=== PATIENT | female | born 1970 | race African-American/Black ===

== ENCOUNTER 2018-09-21 11:09 | Inpatient (IN) | payer MEDICAID ==
[~2018-09-21] VITALS: Ht 162.6 cm; Wt 58.1 kg
[2018-09-21] MEDS ORDERED: ONDANSETRON HCL 4MG/2ML INJ IV STA (11:38)
[2018-09-21] MEDS ORDERED: MORPHINE SULFATE 4 MG/ML CPJ (NOT FOR IM USE) IV STA (11:38)
[2018-09-21] MEDS ORDERED: FAMOTIDINE 20MG/2ML VIAL IV ONE (11:45)
[2018-09-21] MEDS ORDERED: SODIUM CHLORIDE 0.9% 1,000 ML IV ONE (12:04)
[2018-09-21 12:48] LABS: CHLORIDE 96 mEq/L (98-107); INR 1.1; PARTIAL THROMBOPLASTIN TIME 38.8 sec (23.4-31.0); PROTHROMBIN TIME 11.1 sec (9.6-11.0)
[2018-09-21 12:49] LABS: HCG SCREEN NEGATIVE
[2018-09-21 12:52] LABS: ETHANOL BLOOD < 10 mg/dL
[2018-09-21 13:05] LABS: HEMATOCRIT. 27.5 % (36.0-48.0); HEMOGLOBIN. 9.5 g/dL (12.0-16.0); MEAN CORPUSCULAR HEMOGLOBIN 33.4 pg (28.0-32.0); MEAN CORPUSCULAR VOLUME 96.6 fL (81.0-99.0); MEAN PLATELET VOLUME 8.9 fl (7.4-10.4); PLATELET 334 x1000/uL (130-400); RED BLOOD CELL COUNT 2.85 mill/uL (4.2-5.4); RED CELL DISTRIBUTION WIDTH 17.4 % (11.6-14.6)
[2018-09-21] MEDS ORDERED: SODIUM CHLORIDE 0.9% 1000ML BAG (SEPSIS BOLUS) IV ONE (13:30)
[2018-09-21] MEDS ORDERED: POTASSIUM CHLORIDE 20MEQ TABLET SR PO ONE (13:30)
[2018-09-21 13:31] LABS: NUCLEATED RED BLOOD CELLS 1 /100 WBC; PLATELET ESTIMATE NORMAL
[2018-09-21] MEDS ORDERED: LEVOFLOXACIN 500MG PREMIX 100 ML IV ONE (14:00)
[2018-09-21 16:43] LABS: CLARITY URINE CLOUDY (CLEAR); COLOR URINE YELLOW (YELLOW); KETONES URINE NEGATIVE (NEGATIVE); LEUKOCYTE ESTERASE URINE 1+ (NEGATIVE); NITRITE URINE NEGATIVE (NEGATIVE); OCCULT BLOOD URINE 1+ (NEGATIVE); PH URINE 6.5 (4.5-8.0); PROTEIN URINE 1+ (NEGATIVE); SPECIFIC GRAVITY URINE 1.016 (1.005-1.030)
[2018-09-21 17:04] LABS: *AMPHETAMINES SCREEN URINE NEGATIVE (NEGATIVE); *BARBITURATES SCREEN URINE NEGATIVE (NEGATIVE); *BENZODIAZEPINES SCREEN URINE NEGATIVE (NEGATIVE); *COCAINE SCREEN URINE NEGATIVE (NEGATIVE)
[2018-09-21 17:05] LABS: METHADONE URINE SCREEN NEGATIVE (NEGATIVE); PHENCYCLIDINE URINE SCREEN NEGATIVE (NEGATIVE)
[2018-09-21 17:12] LABS: CANNABINOID URINE SCREEN PRESUMTIVE POSITIVE (NEGATIVE); OPIATES URINE SCREEN PRESUMTIVE POSITIVE (NEGATIVE)
[2018-09-21] MEDS ORDERED: ONDANSETRON HCL 4MG/2ML INJ IV PRN (18:00)
[2018-09-21] MEDS ORDERED: CLONIDINE 0.1MG TABLET PO PRN (18:00)
[2018-09-21] MEDS ORDERED: MAGNESIUM/ALUMINUM HYDROXIDE/SIMETHICONE 30ML UDC PO PRN (18:00)
[2018-09-21] MEDS ORDERED: HYDROMORPHONE HCL/PF 2MG/ML CPJ IV PRN (18:00)
[2018-09-21] MEDS ORDERED: HYDROCODONE/ACETAMINOPHEN 10/325MG TABLET PO PRN (18:00)
[2018-09-21] MEDS ORDERED: DOCUSATE SODIUM 100MG CAPSULE PO PRN (18:00)
[2018-09-21] MEDS ORDERED: IPRATROPIUM/ALBUTEROL 0.5-3(2.5)MG/3ML NEB INH PRN (18:00)
[2018-09-21] MEDS ORDERED: GUAIFENESIN 200MG/10ML SUGAR FREE UDC PO PRN (18:00)
[2018-09-21] MEDS ORDERED: LORAZEPAM 2MG/ML CPJ IV PRN (18:00)
[2018-09-21] MEDS ORDERED: HYDRALAZINE 20MG/ML VIAL IV PRN (18:00)
[2018-09-21] MEDS ORDERED: CEFTRIAXONE 2 G PREMIX 50 ML IV SCH (18:30)
[2018-09-21] MEDS: SODIUM CHLORIDE 0.9% 1,000 ML IV SCH (18:37)
[2018-09-21 20:00] VITALS: BP 154/64
[2018-09-21 20:53] VITALS: BP 154/64
[2018-09-21] MEDS ORDERED: FLUCONAZOLE 100MG TABLET PO SCH (21:00)
[2018-09-21] MEDS: ENOXAPARIN 40MG/0.4ML SYR SUBCUT SCH (21:27)
[2018-09-21] MEDS: DIPHENHYDRAMINE 50MG/ML VIAL IV PRN (21:27)
[2018-09-21] MEDS: SODIUM CHLORIDE 0.9% INJ 3ML FLUSH IVF SCH (21:54)
[2018-09-21] MEDS ORDERED: AZITHROMYCIN 500 MG in DEXT 5% WATER 250 ML IV SCH (22:00)
[2018-09-21 23:28] LABS: CREATINE KINASE 89 IU/L (26-192)
[2018-09-21 23:30] LABS: CREATINE KINASE MB FRACTION < 1.0 ng/mL (0.5-3.6)
[2018-09-22] VITALS: BP 94/62
[2018-09-22] MEDS ORDERED: AZIT500T5 PO ×3 (00:57→01:15)
[2018-09-22] MEDS ORDERED: MYCOC15 TP (01:11)
[2018-09-22] MEDS ORDERED: BENA40TA9 PO (01:11)
[2018-09-22] MEDS ORDERED: ATAZ300C MT (01:11)
[2018-09-22] MEDS ORDERED: RITO100T MT (01:11)
[2018-09-22] MEDS ORDERED: FLUC200T51 PO (01:11)
[2018-09-22 04:00] VITALS: BP 111/75
[2018-09-22] MEDS: SODIUM CHLORIDE 0.9% 1,000 ML IV SCH ×2 (05:39→18:08)
[2018-09-22] MEDS: SODIUM CHLORIDE 0.9% INJ 3ML FLUSH IVF SCH ×3 (05:39→21:50)
[2018-09-22 06:00] LABS: HEMATOCRIT. 24.3 % (36.0-48.0); HEMOGLOBIN. 8.2 g/dL (12.0-16.0); MEAN CORPUSCULAR HEMOGLOBIN 32.8 pg (28.0-32.0); MEAN CORPUSCULAR VOLUME 97.4 fL (81.0-99.0); MEAN PLATELET VOLUME 8.4 fl (7.4-10.4); PLATELET 251 x1000/uL (130-400); RED BLOOD CELL COUNT 2.49 mill/uL (4.2-5.4)
[2018-09-22 06:24] LABS: CHLORIDE 98 mEq/L (98-107)
[2018-09-22 06:37] LABS: CREATINE KINASE 66 IU/L (26-192)
[2018-09-22 06:41] LABS: CREATINE KINASE MB FRACTION < 1.0 ng/mL (0.5-3.6)
[2018-09-22] MEDS: DIPHENHYDRAMINE 50MG/ML VIAL IV PRN (09:54)
[2018-09-22 16:00] VITALS: BP 100/60
[2018-09-22] MEDS ORDERED: FLUCONAZOLE 100MG TABLET PO SCH (16:00)
[2018-09-22 16:05] LABS: PLATELET ESTIMATE NORMAL
[2018-09-22] MEDS ORDERED: CEFTRIAXONE 2 G in DEXTROSE 5% WATER 50 ML IV SCH (18:00)
[2018-09-22] MEDS: ACETAMINOPHEN 325MG TABLET PO PRN (18:16)
[2018-09-22 20:00] VITALS: BP 102/70
[2018-09-22] MEDS: ENOXAPARIN 40MG/0.4ML SYR SUBCUT SCH (21:50)
[2018-09-22] MEDS ORDERED: AZITHROMYCIN 500MG in DEXTROSE 5% WATER 250ML IV SCH (22:00)
[2018-09-23] VITALS: BP 119/75
[2018-09-23 04:00] VITALS: BP 115/74
[2018-09-23] MEDS: SODIUM CHLORIDE 0.9% 1,000 ML IV SCH (04:42)
[2018-09-23] MEDS: ACETAMINOPHEN 325MG TABLET PO PRN (04:46)
[2018-09-23] MEDS: SODIUM CHLORIDE 0.9% INJ 3ML FLUSH IVF SCH (06:51)
[2018-09-23 08:00] VITALS: BP 122/74
[2018-09-23 08:14] VITALS: BP 122/74
== END 2018-09-23 09:55 | disposition home or self-care (01) | DRG 893 ==
LOC: ER 11:09 → 8WST 13:58 → EDBEDREQ 14:06 → ENRESERV 17:26
PROVIDERS: ADMIT Internal Medicine; ATTEND Internal Medicine
DX: B20 Human immunodeficiency virus [HIV] disease (principal); J18.1 Lobar pneumonia, unspecified organism; E46 Unspecified protein-calorie malnutrition; N39.0 Urinary tract infection, site not specified; D64.9 Anemia, unspecified; K52.9 Noninfective gastroenteritis and colitis, unspecified; F12.90 Cannabis use, unspecified, uncomplicated; Z68.22 Body mass index [BMI] 22.0-22.9, adult
CPT/HCPCS: 36415; 71045; 74176; 76770; 80305; 80320; 82550; 82553; 83605; 83615; 83735; 83880; 84145; 84484; 84703; 87804; 93005; 96365; 96375; 99291; J0456; J0696; J1200; J1650; J1956; J2060; J2270; J2405; J3490; J7030; J7040; J7060; G0480

== ENCOUNTER 2019-01-11 12:36 | Inpatient (IN) | payer MEDICAID ==
[~2019-01-11] VITALS: Ht 160 cm; Wt 578.8 kg
[~2019-01-11 12:36] MED LIST: ATAZ300C MT; AZIT500T5 PO; BENA40TA9 PO; FLUC200T51 PO; MYCOC15 TP; RITO100T MT
[2019-01-11] MEDS ORDERED: SODIUM CHLORIDE 0.9% 1,000 ML IV ONE (15:39)
[2019-01-11] MEDS ORDERED: MORPHINE SULFATE 4 MG/ML CPJ (NOT FOR IM USE) IV STA (15:39)
[2019-01-11 16:00] LABS: CLARITY URINE CLEAR (CLEAR); COLOR URINE YELLOW (YELLOW); KETONES URINE TRACE (NEGATIVE); LEUKOCYTE ESTERASE URINE TRACE (NEGATIVE); NITRITE URINE NEGATIVE (NEGATIVE); OCCULT BLOOD URINE 3+ (NEGATIVE); PH URINE 6.5 (4.5-8.0); PROTEIN URINE TRACE (NEGATIVE); SPECIFIC GRAVITY URINE 1.023 (1.005-1.030); UROBILINOGEN URINE 0.2 E.U./dL (0.2-1.0)
[2019-01-11 16:26] LABS: BASOPHILS % 0.3 % (0.0-2.0); EOSINOPHILS % 0.2 % (0.0-5.0); HEMATOCRIT. 27.5 % (36.0-48.0); HEMOGLOBIN. 9.2 g/dL (12.0-16.0); LYMPHOCYTES % 21.3 % (20.0-50.0); MEAN CORPUSCULAR HEMOGLOBIN 33.6 pg (28.0-32.0); MEAN PLATELET VOLUME 7.5 fl (7.4-10.4); MONOCYTES % 8.6 % (2.0-8.0); NEUTROPHILS % 69.6 % (40.0-76.0); PLATELET 395 x1000/uL (130-400); RED BLOOD CELL COUNT 2.74 mill/uL (4.2-5.4)
[2019-01-11 16:32] LABS: CHLORIDE 103 mEq/L (98-107)
[2019-01-11 16:40] LABS: PROTHROMBIN TIME 10.4 sec (9.6-11.0)
[2019-01-11] MEDS ORDERED: POTASSIUM CHLORIDE 20MEQ TABLET SR PO ONE (17:45)
[2019-01-11] MEDS ORDERED: MORPHINE SULFATE 4 MG/ML CPJ (NOT FOR IM USE) IV ONE (18:15)
[2019-01-11] MEDS ORDERED: KETOROLAC 15MG/ML VIAL IV ONE (21:15)
[2019-01-12] VITALS: BP 125/75
[2019-01-12] MEDS ORDERED: LORA10TA7 PO (00:27)
[2019-01-12] MEDS ORDERED: SULF-288 PO (00:27)
[2019-01-12] MEDS ORDERED: FERR325T6 PO (00:27)
[2019-01-12] MEDS ORDERED: VALA100044 PO (00:27)
[2019-01-12] MEDS ORDERED: TRIZ MT (00:27)
[2019-01-12] MEDS ORDERED: ONDANSETRON HCL 4MG/2ML INJ IV PRN (02:00)
[2019-01-12] MEDS: MORPHINE SULFATE 2 MG/ML CPJ (NOT FOR IM USE) IV PRN ×5 (02:07→21:53)
[2019-01-12] MEDS: ACETAMINOPHEN 325MG TABLET PO PRN ×4 (02:35→21:42)
[2019-01-12 04:00] VITALS: BP 111/63
[2019-01-12 06:16] LABS: CHLORIDE 103 mEq/L (98-107)
[2019-01-12 06:20] LABS: HEMATOCRIT. 26.5 % (36.0-48.0); HEMOGLOBIN. 8.9 g/dL (12.0-16.0); MEAN CORPUSCULAR HEMOGLOBIN 33.7 pg (28.0-32.0); MEAN CORPUSCULAR VOLUME 99.9 fL (81.0-99.0); MEAN PLATELET VOLUME 7.8 fl (7.4-10.4); PLATELET 327 x1000/uL (130-400); RED BLOOD CELL COUNT 2.65 mill/uL (4.2-5.4); RED CELL DISTRIBUTION WIDTH 19.6 % (11.6-14.6)
[2019-01-12] MEDS ORDERED: POTASSIUM CHLORIDE 20MEQ TABLET SR PO NR (07:45)
[2019-01-12 08:00] VITALS: BP 116/75
[2019-01-12] MEDS ORDERED: NYSTATIN TP SCH (09:00)
[2019-01-12] MEDS ORDERED: BENAZEPRIL 10MG TABLET PO SCH (09:00)
[2019-01-12] MEDS ORDERED: ABACAVIR/LAMIVUDINE/ZIDOVUDINE 300/150/300MG TABLET PO SCH (09:00)
[2019-01-12] MEDS: FLUCONAZOLE 100MG TABLET PO SCH (09:06)
[2019-01-12] MEDS: ATAZANAVIR SULFATE 150MG CAPSULE PO SCH (09:08)
[2019-01-12] MEDS: ZIDOVUDINE 300MG TABLET PO SCH ×2 (09:08→16:32)
[2019-01-12] MEDS: LAMIVUDINE 150MG TABLET PO SCH ×2 (09:08→16:32)
[2019-01-12] MEDS: ABACAVIR SULFATE 300MG TABLET PO SCH ×2 (09:08→16:32)
[2019-01-12] MEDS: RITONAVIR 100 MG TABLET PO SCH (09:08)
[2019-01-12 12:00] VITALS: BP 93/55
[2019-01-12 14:49] LABS: TOTAL IRON BINDING CAPACITY 285 ug/dL (250-450)
[2019-01-12 15:34] LABS: METHADONE URINE SCREEN NEGATIVE (NEGATIVE); OPIATES URINE SCREEN NEGATIVE (NEGATIVE)
[2019-01-12 15:35] LABS: *AMPHETAMINES SCREEN URINE NEGATIVE (NEGATIVE); *BARBITURATES SCREEN URINE NEGATIVE (NEGATIVE); *BENZODIAZEPINES SCREEN URINE NEGATIVE (NEGATIVE); PHENCYCLIDINE URINE SCREEN NEGATIVE (NEGATIVE)
[2019-01-12 15:40] LABS: *COCAINE SCREEN URINE PRESUMTIVE POSITIVE (NEGATIVE); CANNABINOID URINE SCREEN PRESUMTIVE POSITIVE (NEGATIVE)
[2019-01-12 16:00] VITALS: BP 102/62
[2019-01-12 16:13] LABS: PLATELET ESTIMATE NORMAL
[2019-01-12] MEDS: SIMETHICONE 80MG TABLET CHEW PO PRN (17:53)
[2019-01-12 20:00] VITALS: BP 100/49
[2019-01-12] MEDS: FERROUS SULFATE 325MG TABLET PO SCH (21:41)
[2019-01-12] MEDS: VALACYCLOVIR HCL 500MG TABLET PO SCH (21:41)
[2019-01-12] MEDS: LORATADINE 10MG TABLET PO SCH (21:42)
[2019-01-12] MEDS: SULFAMETHOXAZOLE/TRIMETHOPRIM 800/160MG TABLET PO SCH (21:52)
[2019-01-13] MEDS: SIMETHICONE 80MG TABLET CHEW PO PRN ×2 (05:26→18:45)
[2019-01-13] MEDS: ACETAMINOPHEN 325MG TABLET PO PRN ×3 (05:42→17:25)
[2019-01-13 06:31] LABS: HEMATOCRIT. 25.3 % (36.0-48.0); HEMOGLOBIN. 8.7 g/dL (12.0-16.0); MEAN CORPUSCULAR HEMOGLOBIN 34.3 pg (28.0-32.0); MEAN CORPUSCULAR VOLUME 99.9 fL (81.0-99.0); MEAN PLATELET VOLUME 8.1 fl (7.4-10.4); PLATELET 303 x1000/uL (130-400); RED BLOOD CELL COUNT 2.54 mill/uL (4.2-5.4)
[2019-01-13 07:08] LABS: CHLORIDE 103 mEq/L (98-107)
[2019-01-13 08:00] VITALS: BP 89/54
[2019-01-13] MEDS: ABACAVIR SULFATE 300MG TABLET PO SCH ×2 (09:06→17:20)
[2019-01-13] MEDS: LAMIVUDINE 150MG TABLET PO SCH ×2 (09:06→17:20)
[2019-01-13] MEDS: ZIDOVUDINE 300MG TABLET PO SCH ×2 (09:07→17:20)
[2019-01-13] MEDS: ATAZANAVIR SULFATE 150MG CAPSULE PO SCH (09:07)
[2019-01-13] MEDS: RITONAVIR 100 MG TABLET PO SCH (09:07)
[2019-01-13] MEDS: FLUCONAZOLE 100MG TABLET PO SCH (09:11)
[2019-01-13 10:05] LABS: NUCLEATED RED BLOOD CELLS 1 /100 WBC
[2019-01-13 10:06] LABS: PLATELET ESTIMATE NORMAL
[2019-01-13 11:57] VITALS: BP 91/62
[2019-01-13] MEDS: MORPHINE SULFATE 2 MG/ML CPJ (NOT FOR IM USE) IV PRN ×2 (12:22→21:10)
[2019-01-13 15:54] VITALS: BP 101/62
[2019-01-13 20:00] VITALS: BP 105/73
[2019-01-13] MEDS: VALACYCLOVIR HCL 500MG TABLET PO SCH (21:16)
[2019-01-13] MEDS: SULFAMETHOXAZOLE/TRIMETHOPRIM 800/160MG TABLET PO SCH (21:16)
[2019-01-13] MEDS: LORATADINE 10MG TABLET PO SCH (21:16)
[2019-01-13] MEDS: FERROUS SULFATE 325MG TABLET PO SCH (21:16)
[2019-01-14] VITALS: BP 102/65
[2019-01-14] MEDS: MORPHINE SULFATE 2 MG/ML CPJ (NOT FOR IM USE) IV PRN ×2 (01:32→05:43)
[2019-01-14] MEDS: SIMETHICONE 80MG TABLET CHEW PO PRN (01:39)
[2019-01-14 04:00] VITALS: BP 110/70
[2019-01-14 08:00] VITALS: BP 126/80
[2019-01-14 09:11] LABS: ABSOLUTE LYMPHOCYTES 1.6 x10E3/uL (0.7-3.1); ABSOLUTE MONOCYTES 0.5 x10E3/uL (0.1-0.9); ABSOLUTE NEUTROPHILS 2.2 x10E3/uL (1.4-7.0); BASOPHILS 0 % (Not Estab.); HEMATOCRIT 33.3 % (34.0-46.6); HEMATOLOGY COMMENT Note: (.); HEMOGLOBIN 10.4 g/dL (11.1-15.9); LYMPHOCYTES 37 % (Not Estab.); MEAN CORPUSCULAR HEMOGLOBIN 31.4 pg (26.6-33.0); MEAN CORPUSCULAR HGB CONC. 31.2 g/dL (31.5-35.7); MEAN CORPUSCULAR VOLUME 101 fL (79-97); MONOCYTES 12 % (Not Estab.); NEUTROPHILS 48 % (Not Estab.); PLATELETS 387 x10E3/uL (150-450); RBC 3.31 x10E6/uL (3.77-5.28); RED CELL DISTRIBUTION WIDTH 18.3 % (12.3-15.4); WBC 4.4 x10E3/uL (3.4-10.8)
[2019-01-14] MEDS: ABACAVIR SULFATE 300MG TABLET PO SCH ×2 (09:14→16:25)
[2019-01-14] MEDS: ZIDOVUDINE 300MG TABLET PO SCH ×2 (09:15→16:25)
[2019-01-14] MEDS: LAMIVUDINE 150MG TABLET PO SCH ×2 (09:15→16:25)
[2019-01-14] MEDS: RITONAVIR 100 MG TABLET PO SCH (09:15)
[2019-01-14] MEDS: ATAZANAVIR SULFATE 150MG CAPSULE PO SCH (09:15)
[2019-01-14] MEDS: FLUCONAZOLE 100MG TABLET PO SCH (09:15)
[2019-01-14] MEDS: ACETAMINOPHEN 325MG TABLET PO PRN (09:15)
[2019-01-14] MEDS ORDERED: HYDROMORPHONE HCL/PF 2MG/ML CPJ IV PRN (09:45)
[2019-01-14] MEDS: SORBITOL 70% SOLN 30ML PO NR ×2 (10:08→10:56)
[2019-01-14 11:21] VITALS: BP 111/79
[2019-01-14 13:06] LABS: % CD 4 POS. LYMPHOCYTES 3.6 % (30.8-58.5); % CD 8 POS. LYMPH 66.8 % (12.0-35.5); ABSOLUTE CD 3 1184 /uL (622-2402); ABSOLUTE CD 4 HELPER 58 /uL (359-1519); ABSOLUTE CD 8 SUPPRESSOR 1069 /uL (109-897); CD4/CD8 RATIO 0.05 (0.92-3.72)
[2019-01-14 15:22] VITALS: BP 100/60
[2019-01-14 16:04] LABS: HEMOGLOBIN. 10.6 g/dL (12.0-16.0); MEAN CORPUSCULAR HEMOGLOBIN 33.3 pg (28.0-32.0); MEAN CORPUSCULAR VOLUME 101.1 fL (81.0-99.0); MEAN PLATELET VOLUME 7.9 fl (7.4-10.4); PLATELET 361 x1000/uL (130-400); RED BLOOD CELL COUNT 3.17 mill/uL (4.2-5.4); RED CELL DISTRIBUTION WIDTH 19.6 % (11.6-14.6)
[2019-01-14 16:11] LABS: CHLORIDE 98 mEq/L (98-107)
[2019-01-14 16:40] VITALS: BP 99/60
[2019-01-14 16:43] LABS: PLATELET ESTIMATE NORMAL
[2019-01-17] MEDS ORDERED: AZITHROMYCIN 600 MG TABLET PO SCH (09:00)
[2019-01-20 04:09] LABS: OVA & PARASITE EXAM Final report (.)
== END 2019-01-14 17:03 | disposition home or self-care (01) | DRG 892 ==
LOC: ER 12:36 → 6EST 20:13 → EDBEDREQ 20:16 → EDBEDREQTM 20:16 → ENRESERV 22:36
PROVIDERS: ADMIT Internal Medicine; ATTEND Internal Medicine
DX: A41.9 Sepsis, unspecified organism (principal); B20 Human immunodeficiency virus [HIV] disease; E43 Unspecified severe protein-calorie malnutrition; D61.818 Other pancytopenia; B37.81 Candidal esophagitis; Z68.45 Body mass index [BMI] 70 or greater, adult; M47.897 Other spondylosis, lumbosacral region; D53.9 Nutritional anemia, unspecified; F12.90 Cannabis use, unspecified, uncomplicated; F14.90 Cocaine use, unspecified, uncomplicated; F17.210 Nicotine dependence, cigarettes, uncomplicated; N39.0 Urinary tract infection, site not specified; K52.9 Noninfective gastroenteritis and colitis, unspecified; E87.6 Hypokalemia; Z71.51 Drug abuse counseling and surveillance of drug abuser
CPT/HCPCS: 36415; 74018; 74176; 80048; 80305; 82270; 82728; 83540; 83550; 83605; 86359; 86360; 87015; 87045; 87177; 87209; 87328; 87427; 87449; 87493; 89055; 96374; 99285; J1170; J1885; J2270; J2405; J7030

== ENCOUNTER 2019-01-22 10:55 | Emergency (ER) | payer MEDICAID ==
[~2019-01-22] VITALS: Ht 162.6 cm; Wt 110.0 kg
[~2019-01-22 10:55] MED LIST changes: +FERR325T6 PO; +LORA10TA7 PO; +SULF-288 PO; +TRIZ MT; +VALA100044 PO
[2019-01-22] MEDS ORDERED: ONDANSETRON HCL 4MG/2ML INJ IV STA (11:32)
[2019-01-22] MEDS ORDERED: MAGNESIUM/ALUMINUM HYDROXIDE/SIMETHICONE 30ML UDC PO STA (11:32)
[2019-01-22] MEDS ORDERED: FAMOTIDINE 20MG/2ML VIAL IV STA (11:32)
[2019-01-22] MEDS ORDERED: SODIUM CHLORIDE 0.9% 1,000 ML IV ONE (11:32)
[2019-01-22] MEDS ORDERED: VISCOUS LIDOCAINE 2% 15 ML UDC PO STA (11:32)
[2019-01-22] MEDS ORDERED: MINERAL OIL ENEMA 133ML PR ONE (12:15)
[2019-01-22] MEDS ORDERED: DICYCLOMINE HCL 10MG/ML 2ML AMP IM ONE (12:15)
[2019-01-22 14:23] LABS: HEMATOCRIT. 27.4 % (36.0-48.0); HEMOGLOBIN. 9.2 g/dL (12.0-16.0); MEAN CORPUSCULAR VOLUME 101.4 fL (81.0-99.0); MEAN PLATELET VOLUME 7.2 fl (7.4-10.4); PLATELET 350 x1000/uL (130-400); RED BLOOD CELL COUNT 2.71 mill/uL (4.2-5.4); RED CELL DISTRIBUTION WIDTH 19.4 % (11.6-14.6)
[2019-01-22 14:29] LABS: CHLORIDE 105 mEq/L (98-107)
[2019-01-22 14:35] LABS: PROTHROMBIN TIME 10.5 sec (9.6-11.0)
[2019-01-22 15:22] LABS: CLARITY URINE CLEAR (CLEAR); COLOR URINE YELLOW (YELLOW); KETONES URINE TRACE (NEGATIVE); LEUKOCYTE ESTERASE URINE 2+ (NEGATIVE); NITRITE URINE NEGATIVE (NEGATIVE); OCCULT BLOOD URINE NEGATIVE (NEGATIVE); PROTEIN URINE TRACE (NEGATIVE); SPECIFIC GRAVITY URINE 1.019 (1.005-1.030)
[2019-01-22 16:42] LABS: PLATELET ESTIMATE NORMAL
[2019-01-22 18:00] VITALS: BP 113/165
== END 2019-01-22 18:00 | disposition home or self-care (01) ==
LOC: ER 10:55
DX: N39.0 Urinary tract infection, site not specified (principal); G89.29 Other chronic pain; D72.819 Decreased white blood cell count, unspecified; D64.9 Anemia, unspecified; K59.00 Constipation, unspecified; I10 Essential (primary) hypertension; Z79.899 Other long term (current) drug therapy
CPT/HCPCS: 36415; 74018; 80053; 81003; 83690; 85025; 85610; 96372; 96374; 96375; 99284; J0500; J2405; J3490; J7030

== ENCOUNTER 2019-05-28 22:53 | Inpatient (IN) | payer MEDICAID ==
[~2019-05-28] VITALS: Ht 162.6 cm; Wt 51.3 kg
[2019-05-28] MEDS ORDERED: ONDANSETRON HCL 4MG/2ML INJ IV STA (23:51)
[2019-05-28] MEDS ORDERED: SODIUM CHLORIDE 0.9% 1,000 ML IV ONE (23:51)
[2019-05-28] MEDS ORDERED: MORPHINE SULFATE 4 MG/ML CPJ (NOT FOR IM USE) IV STA (23:51)
[2019-05-29 00:26] LABS: BASOPHILS % 0.3 % (0.0-2.0); CHLORIDE 104 mEq/L (98-107); EOSINOPHILS % 0.9 % (0.0-5.0); HEMATOCRIT. 34.1 % (36.0-48.0); HEMOGLOBIN. 11.1 g/dL (12.0-16.0); INR 0.9; LYMPHOCYTES % 17.9 % (20.0-50.0); MEAN CORPUSCULAR VOLUME 94.9 fL (81.0-99.0); MEAN PLATELET VOLUME 8.2 fl (7.4-10.4); MONOCYTES % 6.3 % (2.0-8.0); NEUTROPHILS % 74.6 % (40.0-76.0); PLATELET 305 x1000/uL (130-400); PROTHROMBIN TIME 9.4 sec (9.6-11.0); RED BLOOD CELL COUNT 3.59 mill/uL (4.2-5.4)
[2019-05-29 01:46] LABS: CLARITY URINE CLEAR (CLEAR); COLOR URINE DARK YELLOW (YELLOW); KETONES URINE TRACE (NEGATIVE); LEUKOCYTE ESTERASE URINE TRACE (NEGATIVE); NITRITE URINE NEGATIVE (NEGATIVE); OCCULT BLOOD URINE NEGATIVE (NEGATIVE); PH URINE 8.5 (4.5-8.0); PROTEIN URINE 1+ (NEGATIVE)
[2019-05-29 01:54] LABS: *BENZODIAZEPINES SCREEN URINE NEGATIVE (NEGATIVE); METHADONE URINE SCREEN NEGATIVE (NEGATIVE)
[2019-05-29 01:55] LABS: *AMPHETAMINES SCREEN URINE NEGATIVE (NEGATIVE); *BARBITURATES SCREEN URINE NEGATIVE (NEGATIVE); PHENCYCLIDINE URINE SCREEN NEGATIVE (NEGATIVE)
[2019-05-29 01:58] LABS: *COCAINE SCREEN URINE PRESUMTIVE POSITIVE (NEGATIVE); CANNABINOID URINE SCREEN PRESUMTIVE POSITIVE (NEGATIVE); OPIATES URINE SCREEN PRESUMTIVE POSITIVE (NEGATIVE)
[2019-05-29] MEDS ORDERED: IOHEXOL-300 100 ML BOTTLE ONE (03:56)
[2019-05-29 04:30] VITALS: BP 109/73
[2019-05-29] MEDS ORDERED: CLONIDINE 0.1MG TABLET PO PRN (06:15)
[2019-05-29] MEDS ORDERED: ONDANSETRON HCL 4MG/2ML INJ IV PRN (06:15)
[2019-05-29] MEDS: DEXT 5%/0.45% NACL 1000ML 1,000 ML IV SCH ×2 (07:45→20:22)
[2019-05-29] MEDS: LORATADINE 10MG TABLET PO SCH (10:41)
[2019-05-29] MEDS: HYDROMORPHONE HCL/PF 2MG/ML CPJ IV PRN ×4 (11:11→23:20)
[2019-05-29 12:00] VITALS: BP 124/79
[2019-05-29] MEDS: ATAZANAVIR SULFATE 150MG CAPSULE PO SCH (14:00)
[2019-05-29] MEDS: LAMIVUDINE 150MG TABLET PO SCH ×2 (14:00→22:00)
[2019-05-29] MEDS: ZIDOVUDINE 300MG TABLET PO SCH ×2 (14:01→21:28)
[2019-05-29] MEDS: ABACAVIR SULFATE 300MG TABLET PO SCH ×2 (14:01→21:26)
[2019-05-29] MEDS: RITONAVIR 100 MG TABLET PO SCH (14:01)
[2019-05-29] MEDS: SULFAMETHOXAZOLE/TRIMETHOPRIM 800/160MG TABLET PO SCH (16:12)
[2019-05-29] MEDS ORDERED: ABACAVIR/LAMIVUDINE/ZIDOVUDINE 300/150/300MG TABLET PO SCH (17:00)
[2019-05-29] MEDS: POLYETHYLENE GLYCOL 3350 (17GM) 1 DOSE PACK PO SCH (18:26)
[2019-05-29 20:00] VITALS: BP 101/68
[2019-05-29] MEDS ORDERED: DIPHENHYDRAMINE 50MG CAPSULE PO PRN (20:15)
[2019-05-29] MEDS: VALACYCLOVIR HCL 500MG TABLET PO SCH (20:19)
[2019-05-30] VITALS: BP 101/62
[2019-05-30 04:00] VITALS: BP 120/70
[2019-05-30] MEDS: HYDROMORPHONE HCL/PF 2MG/ML CPJ IV PRN ×6 (04:51→21:54)
[2019-05-30 06:21] LABS: BASOPHILS % 0.3 % (0.0-2.0); EOSINOPHILS % 0.6 % (0.0-5.0); HEMATOCRIT. 30.1 % (36.0-48.0); HEMOGLOBIN. 9.9 g/dL (12.0-16.0); LYMPHOCYTES % 19.9 % (20.0-50.0); MEAN CORPUSCULAR HEMOGLOBIN 31.4 pg (28.0-32.0); MEAN CORPUSCULAR VOLUME 95.5 fL (81.0-99.0); MEAN PLATELET VOLUME 8.2 fl (7.4-10.4); MONOCYTES % 10.7 % (2.0-8.0); NEUTROPHILS % 68.5 % (40.0-76.0); PLATELET 277 x1000/uL (130-400); RED BLOOD CELL COUNT 3.16 mill/uL (4.2-5.4); RED CELL DISTRIBUTION WIDTH 17.4 % (11.6-14.6)
[2019-05-30 06:35] LABS: CHLORIDE 103 mEq/L (98-107)
[2019-05-30 08:00] VITALS: BP 132/69
[2019-05-30] MEDS: POLYETHYLENE GLYCOL 3350 (17GM) 1 DOSE PACK PO SCH (08:48)
[2019-05-30] MEDS: RITONAVIR 100 MG TABLET PO SCH (08:49)
[2019-05-30] MEDS: ABACAVIR SULFATE 300MG TABLET PO SCH ×2 (08:49→20:47)
[2019-05-30] MEDS: VALACYCLOVIR HCL 500MG TABLET PO SCH ×2 (08:49→20:47)
[2019-05-30] MEDS: LORATADINE 10MG TABLET PO SCH (08:49)
[2019-05-30] MEDS: ZIDOVUDINE 300MG TABLET PO SCH ×2 (08:49→20:48)
[2019-05-30] MEDS: ATAZANAVIR SULFATE 150MG CAPSULE PO SCH (08:50)
[2019-05-30] MEDS: LAMIVUDINE 150MG TABLET PO SCH ×2 (08:50→21:00)
[2019-05-30] MEDS ORDERED: AZITHROMYCIN 600 MG TABLET PO SCH (09:00)
[2019-05-30] MEDS: ACETAMINOPHEN 325MG TABLET PO PRN ×2 (10:38→20:45)
[2019-05-30] MEDS: FLUCONAZOLE 100MG TABLET PO SCH (14:59)
[2019-05-30] MEDS: SULFAMETHOXAZOLE/TRIMETHOPRIM 800/160MG TABLET PO SCH (17:03)
[2019-05-30] MEDS: NYSTATIN 100,000 UNITS/ML 5ML UDC SSW SCH (17:03)
[2019-05-30 20:00] VITALS: BP 116/79
[2019-05-30] MEDS: DEXT 5%/0.45% NACL 1000ML 1,000 ML IV SCH (21:53)
[2019-05-31] VITALS: BP 127/76
[2019-05-31 04:00] VITALS: BP 125/78
[2019-05-31] MEDS: NYSTATIN 100,000 UNITS/ML 5ML UDC SSW SCH ×4 (06:00→13:12)
[2019-05-31] MEDS: HYDROMORPHONE HCL/PF 2MG/ML CPJ IV PRN ×3 (07:02→13:08)
[2019-05-31 08:00] VITALS: BP 118/85
[2019-05-31] MEDS: LAMIVUDINE 150MG TABLET PO SCH (09:00)
[2019-05-31] MEDS: ATAZANAVIR SULFATE 150MG CAPSULE PO SCH (09:00)
[2019-05-31] MEDS: RITONAVIR 100 MG TABLET PO SCH (09:59)
[2019-05-31] MEDS: ABACAVIR SULFATE 300MG TABLET PO SCH (09:59)
[2019-05-31] MEDS: VALACYCLOVIR HCL 500MG TABLET PO SCH (09:59)
[2019-05-31] MEDS: LORATADINE 10MG TABLET PO SCH (09:59)
[2019-05-31] MEDS: FLUCONAZOLE 100MG TABLET PO SCH (09:59)
[2019-05-31] MEDS: ZIDOVUDINE 300MG TABLET PO SCH (09:59)
[2019-05-31] MEDS: POLYETHYLENE GLYCOL 3350 (17GM) 1 DOSE PACK PO SCH (10:00)
[2019-05-31 12:00] VITALS: BP 107/75
[2019-05-31] MEDS: DEXT 5%/0.45% NACL 1000ML 1,000 ML IV SCH (13:30)
[2019-05-31 14:32] VITALS: BP 107/75
== END 2019-05-31 14:46 | disposition home or self-care (01) | DRG 890 ==
LOC: ER 22:53 → 6EST 05-29 01:58 → EDBEDREQ 05-29 02:13 → EDBEDREQSVC 05-29 02:13 → EDBEDREQTM 05-29 02:13 → ENRESERV 05-29 02:44
PROVIDERS: ADMIT Hospitalist; ATTEND Hospitalist
DX: B20 Human immunodeficiency virus [HIV] disease (principal); B25.9 Cytomegaloviral disease, unspecified; C85.93 Non-Hodgkin lymphoma, unspecified, intra-abdominal lymph nodes; E43 Unspecified severe protein-calorie malnutrition; D64.9 Anemia, unspecified; B37.9 Candidiasis, unspecified; E88.09 Other disorders of plasma-protein metabolism, not elsewhere classified; D72.819 Decreased white blood cell count, unspecified; K42.9 Umbilical hernia without obstruction or gangrene; E11.9 Type 2 diabetes mellitus without complications; F17.210 Nicotine dependence, cigarettes, uncomplicated; I10 Essential (primary) hypertension; M47.9 Spondylosis, unspecified; F19.10 Other psychoactive substance abuse, uncomplicated; Z79.899 Other long term (current) drug therapy; Z68.1 Body mass index [BMI] 19.9 or less, adult
CPT/HCPCS: 36415; 74177; 80053; 80305; 81003; 82962; 83615; 84484; 85025; 93970; 96361; 96374; 96375; 99285; J1170; J2270; J2405; J7030; Q0163; Q9967

== ENCOUNTER 2019-06-09 14:44 | Emergency (ER) | payer MEDICAID ==
[~2019-06-09] VITALS: Ht 160 cm; Wt 50.0 kg
[2019-06-09 18:43] VITALS: BP 120/99
== END 2019-06-09 19:30 | disposition left against medical advice (07) ==
LOC: ER 14:44
DX: Z53.21 Procedure and treatment not carried out due to patient leaving prior to being seen by health care provider (principal)

== ENCOUNTER 2019-06-10 16:22 | Inpatient (IN) | payer MEDICAID ==
[~2019-06-10] VITALS: Ht 162.6 cm; Wt 47.6 kg
[~2019-06-10 16:22] MED LIST changes: -AZIT500T5 PO; +AZIT500T8 PO
[2019-06-10] MEDS ORDERED: MORPHINE SULFATE 4 MG/ML CPJ (NOT FOR IM USE) IV STA (21:25)
[2019-06-10] MEDS ORDERED: SODIUM CHLORIDE 0.9% 1,000 ML IV ONE (21:25)
[2019-06-10] MEDS ORDERED: ONDANSETRON HCL 4MG/2ML INJ IV STA (21:25)
[2019-06-10 22:36] LABS: HEMATOCRIT. 40.7 % (36.0-48.0); HEMOGLOBIN. 13.6 g/dL (12.0-16.0); MEAN CORPUSCULAR HEMOGLOBIN 30.7 pg (28.0-32.0); MEAN CORPUSCULAR VOLUME 91.7 fL (81.0-99.0); PLATELET 354 x1000/uL (130-400); RED BLOOD CELL COUNT 4.44 mill/uL (4.2-5.4); RED CELL DISTRIBUTION WIDTH 17.5 % (11.6-14.6)
[2019-06-10 22:43] LABS: CHLORIDE 97 mEq/L (98-107); PARTIAL THROMBOPLASTIN TIME 29.3 sec (23.4-31.0); PROTHROMBIN TIME 10.2 sec (9.6-11.0)
[2019-06-10 22:46] LABS: HCG SCREEN NEGATIVE
[2019-06-10 22:48] LABS: ETHANOL BLOOD < 10 mg/dL
[2019-06-10 22:57] LABS: PLATELET ESTIMATE NORMAL
[2019-06-10 23:21] LABS: CLARITY URINE CLEAR (CLEAR); COLOR URINE YELLOW (YELLOW); KETONES URINE 1+ (NEGATIVE); LEUKOCYTE ESTERASE URINE 1+ (NEGATIVE); NITRITE URINE NEGATIVE (NEGATIVE); OCCULT BLOOD URINE NEGATIVE (NEGATIVE); PROTEIN URINE 1+ (NEGATIVE); SPECIFIC GRAVITY URINE 1.039 (1.005-1.030)
[2019-06-10 23:28] LABS: *AMPHETAMINES SCREEN URINE NEGATIVE (NEGATIVE); *BARBITURATES SCREEN URINE NEGATIVE (NEGATIVE); *BENZODIAZEPINES SCREEN URINE NEGATIVE (NEGATIVE); *COCAINE SCREEN URINE NEGATIVE (NEGATIVE)
[2019-06-10 23:29] LABS: METHADONE URINE SCREEN NEGATIVE (NEGATIVE); OPIATES URINE SCREEN NEGATIVE (NEGATIVE); PHENCYCLIDINE URINE SCREEN NEGATIVE (NEGATIVE)
[2019-06-10 23:38] LABS: CANNABINOID URINE SCREEN PRESUMTIVE POSITIVE (NEGATIVE)
[2019-06-11] MEDS ORDERED: PIPERACILLIN/TAZ 3.375G PREMIX 50 ML IV ONE (02:00)
[2019-06-11] MEDS ORDERED: METRONIDAZOLE 500 MG PREMIX 100 ML IV ONE (02:00)
[2019-06-11] MEDS ORDERED: ONDANSETRON HCL 4MG/2ML INJ IV ONE (02:15)
[2019-06-11] MEDS ORDERED: MORPHINE SULFATE 4 MG/ML CPJ (NOT FOR IM USE) IV ONE (02:15)
[2019-06-11] MEDS ORDERED: ONDANSETRON HCL 4MG/2ML INJ IV PRN (02:45)
[2019-06-11] MEDS ORDERED: MORPHINE SULFATE 4 MG/ML CPJ (NOT FOR IM USE) IV PRN (02:45)
[2019-06-11 04:10] VITALS: BP 132/89
[2019-06-11 08:00] VITALS: BP_SYST 140; BP_DIAS 97; BP_DIAS 98
[2019-06-11] MEDS: LACTATED RINGERS 1,000 ML IV SCH ×3 (11:15→22:17)
[2019-06-11] MEDS: BENAZEPRIL 10MG TABLET PO SCH (11:30)
[2019-06-11] MEDS: HYDROCODONE/ACETAMINOPHEN 10/325MG TABLET PO PRN ×2 (11:54→18:18)
[2019-06-11] MEDS: ONDANSETRON HCL 4MG/2ML INJ IV SCH ×3 (11:56→21:05)
[2019-06-11 12:00] VITALS: BP 123/89
[2019-06-11 12:16] VITALS: BP 109/89
[2019-06-11] MEDS ORDERED: ZOLPIDEM TARTRATE 5MG TABLET PO PRN ×2 (12:30→21:00)
[2019-06-11] MEDS: HYDROCODONE/ACETAMINOPHEN 5/325MG TABLET PO PRN ×2 (15:50→21:17)
[2019-06-11 16:00] VITALS: BP 131/99
[2019-06-11] MEDS: SULFAMETHOXAZOLE/TRIMETHOPRIM 800/160MG TABLET PO SCH (16:51)
[2019-06-11 20:00] VITALS: BP 126/101
[2019-06-11] MEDS ORDERED: SODIUM POLYSTYRENE SULFONATE 15 G/60 ML BOT PO NR (21:00)
[2019-06-11] MEDS: LORATADINE 10MG TABLET PO SCH (21:05)
[2019-06-12] VITALS: BP 131/88
[2019-06-12] MEDS: HYDROCODONE/ACETAMINOPHEN 10/325MG TABLET PO PRN ×2 (00:39→06:48)
[2019-06-12] MEDS: ZOLPIDEM TARTRATE 5MG TABLET PO PRN (00:40)
[2019-06-12] MEDS ORDERED: OMEPRAZOLE 20MG CAPSULE EXTENDED RELEASE PO SCH (01:00)
[2019-06-12] MEDS: HYDROCODONE/ACETAMINOPHEN 5/325MG TABLET PO PRN ×2 (03:20→10:32)
[2019-06-12 04:00] VITALS: BP 135/97
[2019-06-12] MEDS: ONDANSETRON HCL 4MG/2ML INJ IV SCH (05:15)
[2019-06-12 07:05] LABS: HEMATOCRIT. 33.4 % (36.0-48.0); HEMOGLOBIN. 10.9 g/dL (12.0-16.0); MEAN CORPUSCULAR HEMOGLOBIN 30.5 pg (28.0-32.0); MEAN CORPUSCULAR VOLUME 93.2 fL (81.0-99.0); MEAN PLATELET VOLUME 7.8 fl (7.4-10.4); PLATELET 290 x1000/uL (130-400); RED BLOOD CELL COUNT 3.58 mill/uL (4.2-5.4); RED CELL DISTRIBUTION WIDTH 16.9 % (11.6-14.6)
[2019-06-12 07:52] LABS: CHLORIDE 101 mEq/L (98-107)
[2019-06-12 08:00] VITALS: BP 136/95
[2019-06-12] MEDS ORDERED: AZITHROMYCIN 600 MG TABLET PO SCH (09:00)
[2019-06-12] MEDS: BENAZEPRIL 10MG TABLET PO SCH (09:10)
[2019-06-12] MEDS: SULFAMETHOXAZOLE/TRIMETHOPRIM 800/160MG TABLET PO SCH (09:10)
[2019-06-12] MEDS ORDERED: MORPHINE SULFATE 2 MG/ML CPJ (NOT FOR IM USE) IV PRN (11:15)
[2019-06-12] MEDS ORDERED: LABETALOL 5MG/ML SYR 20 MG/4 ML SYRINGE IV PRN (11:45)
[2019-06-12] MEDS ORDERED: NALOXONE HCL 0.4 MG/ML 1ML VIAL IV PRN (11:45)
[2019-06-12] MEDS: PANTOPRAZOLE SODIUM 40 MG/VIAL IV SCH (11:52)
[2019-06-12 12:00] VITALS: BP 117/81
[2019-06-12] MEDS ORDERED: ONDANSETRON HCL 4MG TABLET PO SCH (12:00)
[2019-06-12] MEDS: MORPHINE SULFATE 4 MG/ML CPJ (NOT FOR IM USE) IV PRN ×2 (13:26→20:16)
[2019-06-12] MEDS ORDERED: CLONIDINE 0.1MG TABLET PO PRN (13:30)
[2019-06-12 16:00] VITALS: BP 105/68
[2019-06-12] MEDS: ONDANSETRON HCL 4MG/2ML INJ IV PRN (16:22)
[2019-06-12 17:02] LABS: PLATELET ESTIMATE NORMAL
[2019-06-12 20:00] VITALS: BP 98/60
[2019-06-12] MEDS: LORATADINE 10MG TABLET PO SCH (20:16)
[2019-06-13] VITALS: BP 104/62
[2019-06-13] MEDS: MORPHINE SULFATE 4 MG/ML CPJ (NOT FOR IM USE) IV PRN ×6 (01:30→19:55)
[2019-06-13 04:00] VITALS: BP 97/57
[2019-06-13 06:57] LABS: HEMATOCRIT. 28.2 % (36.0-48.0); HEMOGLOBIN. 9.6 g/dL (12.0-16.0); MEAN CORPUSCULAR HEMOGLOBIN 31.1 pg (28.0-32.0); MEAN CORPUSCULAR VOLUME 91.4 fL (81.0-99.0); MEAN PLATELET VOLUME 7.9 fl (7.4-10.4); PLATELET 275 x1000/uL (130-400); RED BLOOD CELL COUNT 3.08 mill/uL (4.2-5.4); RED CELL DISTRIBUTION WIDTH 17.4 % (11.6-14.6)
[2019-06-13 07:29] LABS: CHLORIDE 100 mEq/L (98-107)
[2019-06-13] MEDS: SULFAMETHOXAZOLE/TRIMETHOPRIM 800/160MG TABLET PO SCH (09:13)
[2019-06-13] MEDS: PANTOPRAZOLE SODIUM 40 MG/VIAL IV SCH (09:13)
[2019-06-13] MEDS: BENAZEPRIL 10MG TABLET PO SCH (09:14)
[2019-06-13] MEDS: ONDANSETRON HCL 4MG/2ML INJ IV PRN ×2 (09:14→15:08)
[2019-06-13] MEDS: GUAIFENESIN 200MG/10ML SUGAR FREE UDC PO SCH ×4 (11:08→22:15)
[2019-06-13 12:00] VITALS: BP 115/69
[2019-06-13 14:05] LABS: PLATELET ESTIMATE NORMAL
[2019-06-13 16:00] VITALS: BP 124/68
[2019-06-13 20:00] VITALS: BP 96/61
[2019-06-13] MEDS: LORATADINE 10MG TABLET PO SCH (20:00)
[2019-06-13] MEDS ORDERED: MAGNESIUM 4 G PREMIX 100 ML IV NR (20:00)
[2019-06-13] MEDS: ZOLPIDEM TARTRATE 5MG TABLET PO PRN (23:26)
[2019-06-14] VITALS: BP 107/76
[2019-06-14] MEDS: MORPHINE SULFATE 4 MG/ML CPJ (NOT FOR IM USE) IV PRN ×6 (00:52→22:39)
[2019-06-14] MEDS: GUAIFENESIN 200MG/10ML SUGAR FREE UDC PO SCH ×6 (02:15→21:21)
[2019-06-14 04:00] VITALS: BP 103/67
[2019-06-14] MEDS: ONDANSETRON HCL 4MG/2ML INJ IV PRN ×2 (05:19→17:28)
[2019-06-14 08:00] VITALS: BP 124/87
[2019-06-14] MEDS: BENAZEPRIL 10MG TABLET PO SCH (08:42)
[2019-06-14] MEDS: SULFAMETHOXAZOLE/TRIMETHOPRIM 800/160MG TABLET PO SCH (08:42)
[2019-06-14] MEDS: PANTOPRAZOLE SODIUM 40 MG/VIAL IV SCH (08:46)
[2019-06-14 12:00] VITALS: BP 116/81
[2019-06-14 12:37] LABS: HEMATOCRIT. 33.2 % (36.0-48.0); HEMOGLOBIN. 10.9 g/dL (12.0-16.0); MEAN CORPUSCULAR HEMOGLOBIN 30.1 pg (28.0-32.0); MEAN CORPUSCULAR VOLUME 91.5 fL (81.0-99.0); MEAN PLATELET VOLUME 7.5 fl (7.4-10.4); PLATELET 346 x1000/uL (130-400); RED BLOOD CELL COUNT 3.62 mill/uL (4.2-5.4); RED CELL DISTRIBUTION WIDTH 17.5 % (11.6-14.6)
[2019-06-14 12:50] LABS: CHLORIDE 100 mEq/L (98-107)
[2019-06-14 13:56] LABS: PLATELET ESTIMATE NORMAL
[2019-06-14] MEDS: LACTATED RINGERS 500ML 500 ML IV SCH ×2 (14:45→20:39)
[2019-06-14 16:00] VITALS: BP 109/79
[2019-06-14] MEDS: ZOLPIDEM TARTRATE 5MG TABLET PO PRN (19:41)
[2019-06-14 20:00] VITALS: BP 109/70
[2019-06-14] MEDS: LORATADINE 10MG TABLET PO SCH (20:35)
[2019-06-15] VITALS: BP 105/71
[2019-06-15] MEDS: LACTATED RINGERS 500ML 500 ML IV SCH ×3 (02:49→22:36)
[2019-06-15] MEDS: GUAIFENESIN 200MG/10ML SUGAR FREE UDC PO SCH ×7 (02:49→20:27)
[2019-06-15] MEDS: MORPHINE SULFATE 4 MG/ML CPJ (NOT FOR IM USE) IV PRN ×5 (02:50→20:27)
[2019-06-15 04:00] VITALS: BP 121/87
[2019-06-15] MEDS: ONDANSETRON HCL 4MG/2ML INJ IV PRN ×2 (05:05→14:17)
[2019-06-15 08:00] VITALS: BP 140/95
[2019-06-15] MEDS: PANTOPRAZOLE SODIUM 40 MG/VIAL IV SCH (08:39)
[2019-06-15] MEDS: BENAZEPRIL 10MG TABLET PO SCH (08:39)
[2019-06-15] MEDS: SULFAMETHOXAZOLE/TRIMETHOPRIM 800/160MG TABLET PO SCH (08:39)
[2019-06-15] MEDS: HYDROCODONE/ACETAMINOPHEN 10/325MG TABLET PO PRN ×3 (08:52→22:40)
[2019-06-15 12:00] VITALS: BP 113/79
[2019-06-15 16:00] VITALS: BP 108/71
[2019-06-15 16:40] LABS: HEMATOCRIT. 33.2 % (36.0-48.0); MEAN CORPUSCULAR HEMOGLOBIN 30.2 pg (28.0-32.0); MEAN CORPUSCULAR VOLUME 90.9 fL (81.0-99.0); MEAN PLATELET VOLUME 7.7 fl (7.4-10.4); PLATELET 295 x1000/uL (130-400); RED BLOOD CELL COUNT 3.66 mill/uL (4.2-5.4); RED CELL DISTRIBUTION WIDTH 17.2 % (11.6-14.6)
[2019-06-15 16:54] LABS: CHLORIDE 99 mEq/L (98-107)
[2019-06-15 17:06] LABS: OVA & PARASITE EXAM Final report (.)
[2019-06-15] MEDS: LORATADINE 10MG TABLET PO SCH (20:31)
[2019-06-15 23:29] LABS: PLATELET ESTIMATE NORMAL
[2019-06-16] VITALS: BP 114/82
[2019-06-16] MEDS: ONDANSETRON HCL 4MG/2ML INJ IV PRN ×2 (02:10→11:31)
[2019-06-16] MEDS: MORPHINE SULFATE 4 MG/ML CPJ (NOT FOR IM USE) IV PRN ×4 (02:11→21:11)
[2019-06-16] MEDS: GUAIFENESIN 200MG/10ML SUGAR FREE UDC PO SCH ×7 (02:11→21:15)
[2019-06-16 04:00] VITALS: BP_SYST 113; BP_SYST 132; BP_DIAS 58; BP_DIAS 82
[2019-06-16] MEDS: HYDROCODONE/ACETAMINOPHEN 10/325MG TABLET PO PRN ×3 (05:17→18:40)
[2019-06-16] MEDS: LACTATED RINGERS 500ML 500 ML IV SCH ×3 (05:18→15:44)
[2019-06-16 07:05] LABS: CHLORIDE 101 mEq/L (98-107)
[2019-06-16 07:29] LABS: HEMATOCRIT. 32.7 % (36.0-48.0); HEMOGLOBIN. 10.7 g/dL (12.0-16.0); MEAN CORPUSCULAR HEMOGLOBIN 29.9 pg (28.0-32.0); MEAN CORPUSCULAR VOLUME 91.2 fL (81.0-99.0); MEAN PLATELET VOLUME 7.9 fl (7.4-10.4); PLATELET 254 x1000/uL (130-400); RED BLOOD CELL COUNT 3.59 mill/uL (4.2-5.4); RED CELL DISTRIBUTION WIDTH 17.3 % (11.6-14.6)
[2019-06-16 08:06] VITALS: BP 116/80
[2019-06-16] MEDS: PANTOPRAZOLE SODIUM 40 MG/VIAL IV SCH (08:51)
[2019-06-16] MEDS: SULFAMETHOXAZOLE/TRIMETHOPRIM 800/160MG TABLET PO SCH (08:52)
[2019-06-16] MEDS: BENAZEPRIL 10MG TABLET PO SCH (08:52)
[2019-06-16] MEDS ORDERED: NON FORMULARY PATIENT HOME MED PO SCH (09:00)
[2019-06-16] MEDS: LAMIVUDINE 150MG TABLET PO SCH ×2 (09:00→18:50)
[2019-06-16 09:08] LABS: ABSOLUTE EOSINOPHILS 0.1 x10E3/uL (0.0-0.4); ABSOLUTE LYMPHOCYTES 0.4 x10E3/uL (0.7-3.1); ABSOLUTE MONOCYTES 0.4 x10E3/uL (0.1-0.9); ABSOLUTE NEUTROPHILS 1.3 x10E3/uL (1.4-7.0); BASOPHILS 1 % (Not Estab.); HEMATOCRIT 33.7 % (34.0-46.6); HEMOGLOBIN 11.1 g/dL (11.1-15.9); IMMATURE GRANULOCYTES 1 % (Not Estab.); LYMPHOCYTES 19 % (Not Estab.); MEAN CORPUSCULAR HEMOGLOBIN 30.2 pg (26.6-33.0); MEAN CORPUSCULAR HGB CONC. 32.9 g/dL (31.5-35.7); MEAN CORPUSCULAR VOLUME 92 fL (79-97); MONOCYTES 17 % (Not Estab.); NEUTROPHILS 58 % (Not Estab.); PLATELETS 340 x10E3/uL (150-450); RBC 3.67 x10E6/uL (3.77-5.28); RED CELL DISTRIBUTION WIDTH 16.7 % (12.3-15.4); WBC 2.1 x10E3/uL (3.4-10.8)
[2019-06-16] MEDS: ZIDOVUDINE 300MG TABLET PO SCH ×2 (10:18→18:36)
[2019-06-16] MEDS: ABACAVIR SULFATE 300MG TABLET PO SCH ×2 (10:19→18:36)
[2019-06-16 12:11] VITALS: BP 112/82
[2019-06-16 13:06] LABS: % CD 3 POS. LYMPHOCYTES 50.8 % (57.5-86.2); % CD 4 POS. LYMPHOCYTES 5.4 % (30.8-58.5); % CD 8 POS. LYMPH 44.9 % (12.0-35.5); ABSOLUTE CD 3 203 /uL (622-2402); ABSOLUTE CD 4 HELPER 22 /uL (359-1519); ABSOLUTE CD 8 SUPPRESSOR 180 /uL (109-897); CD4/CD8 RATIO 0.12 (0.92-3.72)
[2019-06-16 14:11] LABS: PLATELET ESTIMATE NORMAL
[2019-06-16 16:59] VITALS: BP 110/80
[2019-06-16 20:00] VITALS: BP 95/66
[2019-06-16] MEDS: ZOLPIDEM TARTRATE 5MG TABLET PO PRN (20:27)
[2019-06-16] MEDS: LORATADINE 10MG TABLET PO SCH (21:11)
[2019-06-17] VITALS: BP 99/50
[2019-06-17] MEDS: MORPHINE SULFATE 4 MG/ML CPJ (NOT FOR IM USE) IV PRN ×5 (01:36→20:18)
[2019-06-17] MEDS: GUAIFENESIN 200MG/10ML SUGAR FREE UDC PO SCH ×6 (02:15→22:15)
[2019-06-17 04:00] VITALS: BP 99/61
[2019-06-17] MEDS: ONDANSETRON HCL 4MG/2ML INJ IV PRN ×3 (04:15→18:44)
[2019-06-17 07:43] LABS: CHLORIDE 100 mEq/L (98-107)
[2019-06-17 07:57] LABS: HEMATOCRIT. 30.6 % (36.0-48.0); HEMOGLOBIN. 10.2 g/dL (12.0-16.0); MEAN CORPUSCULAR HEMOGLOBIN 30.1 pg (28.0-32.0); MEAN CORPUSCULAR VOLUME 90.8 fL (81.0-99.0); MEAN PLATELET VOLUME 7.8 fl (7.4-10.4); PLATELET 318 x1000/uL (130-400); RED BLOOD CELL COUNT 3.37 mill/uL (4.2-5.4); RED CELL DISTRIBUTION WIDTH 17.1 % (11.6-14.6)
[2019-06-17 08:00] VITALS: BP 93/64
[2019-06-17] MEDS: BENAZEPRIL 10MG TABLET PO SCH (09:00)
[2019-06-17] MEDS: LAMIVUDINE 150MG TABLET PO SCH (09:00)
[2019-06-17 09:09] LABS: QFT MITOGEN VALUE 0.34 IU/mL (.); QFT TB GOLD PLUS Indeterminate (Negative); QFT TB1 AG VALUE 0.17 IU/mL (.)
[2019-06-17] MEDS: SULFAMETHOXAZOLE/TRIMETHOPRIM 800/160MG TABLET PO SCH (09:09)
[2019-06-17] MEDS: ABACAVIR SULFATE 300MG TABLET PO SCH (09:10)
[2019-06-17] MEDS: PANTOPRAZOLE SODIUM 40 MG/VIAL IV SCH (09:10)
[2019-06-17] MEDS: ZIDOVUDINE 300MG TABLET PO SCH (09:10)
[2019-06-17] MEDS: HYDROCODONE/ACETAMINOPHEN 10/325MG TABLET PO PRN (09:19)
[2019-06-17 11:01] LABS: PLATELET ESTIMATE NORMAL
[2019-06-17 12:00] VITALS: BP 92/66
[2019-06-17 13:06] LABS: HEMATOLOGY COMMENT Note: (.)
[2019-06-17] MEDS: LACTATED RINGERS 500ML 500 ML IV SCH (13:21)
[2019-06-17 16:00] VITALS: BP 97/65
[2019-06-17 20:00] VITALS: BP 115/76
[2019-06-17] MEDS: LORATADINE 10MG TABLET PO SCH (20:18)
[2019-06-18] MEDS: MORPHINE SULFATE 4 MG/ML CPJ (NOT FOR IM USE) IV PRN (03:25)
[2019-06-18 04:00] VITALS: BP 103/69
[2019-06-18 06:49] LABS: HEMATOCRIT. 31.9 % (36.0-48.0); HEMOGLOBIN. 10.5 g/dL (12.0-16.0); MEAN CORPUSCULAR HEMOGLOBIN 30.2 pg (28.0-32.0); MEAN CORPUSCULAR VOLUME 91.3 fL (81.0-99.0); MEAN PLATELET VOLUME 7.8 fl (7.4-10.4); PLATELET 274 x1000/uL (130-400); RED BLOOD CELL COUNT 3.49 mill/uL (4.2-5.4); RED CELL DISTRIBUTION WIDTH 17.4 % (11.6-14.6)
[2019-06-18 07:12] LABS: CHLORIDE 104 mEq/L (98-107)
[2019-06-18 08:00] VITALS: BP 106/77
[2019-06-18 08:17] LABS: PLATELET ESTIMATE NORMAL
[2019-06-18] MEDS: BENAZEPRIL 10MG TABLET PO SCH (09:00)
[2019-06-18] MEDS: SULFAMETHOXAZOLE/TRIMETHOPRIM 800/160MG TABLET PO SCH (09:47)
[2019-06-18] MEDS: PANTOPRAZOLE SODIUM 40 MG/VIAL IV SCH (09:47)
[2019-06-18 09:48] VITALS: BP 106/77
[2019-06-18] MEDS: HYDROCODONE/ACETAMINOPHEN 10/325MG TABLET PO PRN (09:48)
[2019-06-21 14:26] LABS: HEPATITIS B SURFACE ANTIGEN NEGATIVE
[2019-08-16] MEDS ORDERED: IMOD PO (10:09)
[2019-08-16] MEDS ORDERED: LACT1CAP77 PO (10:09)
== END 2019-06-18 10:56 | disposition left against medical advice (07) | DRG 892 ==
LOC: ER 19:40 → 6EST 06-11 02:03 → EDBEDREQDT 06-11 02:19 → EDBEDREQSVC 06-11 02:19 → EDBEDREQTM 06-11 02:19 → EDBEDREQ 06-11 02:19 → ENRESERV 06-11 02:54
PROVIDERS: ADMIT Internal Medicine; ATTEND Internal Medicine
DX: C85.90 Non-Hodgkin lymphoma, unspecified, unspecified site (principal); B20 Human immunodeficiency virus [HIV] disease; B37.81 Candidal esophagitis; R64 Cachexia; D72.1 Eosinophilia; E87.1 Hypo-osmolality and hyponatremia; K52.9 Noninfective gastroenteritis and colitis, unspecified; K43.9 Ventral hernia without obstruction or gangrene; F19.10 Other psychoactive substance abuse, uncomplicated; M47.897 Other spondylosis, lumbosacral region; Z53.29 Procedure and treatment not carried out because of patient's decision for other reasons; E87.5 Hyperkalemia; E88.09 Other disorders of plasma-protein metabolism, not elsewhere classified; E11.9 Type 2 diabetes mellitus without complications; I10 Essential (primary) hypertension; D72.819 Decreased white blood cell count, unspecified; G47.00 Insomnia, unspecified; N89.8 Other specified noninflammatory disorders of vagina; Z79.899 Other long term (current) drug therapy; Z68.1 Body mass index [BMI] 19.9 or less, adult
CPT/HCPCS: 36415; 71045; 74176; 80048; 80053; 80305; 80320; 81003; 82270; 82962; 83605; 83735; 83880; 84100; 84145; 84484; 84703; 85025; 85044; 86359; 86360; 86480; 87015; 87045; 87177; 87209; 87427; 87449; 87493; 89055; 93005; 96365; 97116; 97162; 97530; 99285; C1893; C9113; J2270; J2405; J2543; J3475; J3490; J7030; J7120; G0480

== ENCOUNTER 2019-07-05 16:14 | Emergency (ER) | payer MEDICAID ==
[~2019-07-05] VITALS: Ht 162.6 cm; Wt 60.0 kg
[2019-07-05] MEDS ORDERED: HYDROCODONE/ACETAMINOPHEN 5/325MG TABLET PO ONE (18:45)
[2019-07-05 19:24] LABS: *AMPHETAMINES SCREEN URINE NEGATIVE (NEGATIVE); *BARBITURATES SCREEN URINE NEGATIVE (NEGATIVE); *BENZODIAZEPINES SCREEN URINE NEGATIVE (NEGATIVE); *COCAINE SCREEN URINE NEGATIVE (NEGATIVE); METHADONE URINE SCREEN NEGATIVE (NEGATIVE)
[2019-07-05 19:25] LABS: PHENCYCLIDINE URINE SCREEN NEGATIVE (NEGATIVE)
[2019-07-05 19:30] LABS: CANNABINOID URINE SCREEN PRESUMTIVE POSITIVE (NEGATIVE); OPIATES URINE SCREEN PRESUMTIVE POSITIVE (NEGATIVE)
[2019-07-05 20:06] VITALS: BP 101/70
== END 2019-07-05 20:06 | disposition home or self-care (01) ==
LOC: ER 16:24
DX: R22.43 Localized swelling, mass and lump, lower limb, bilateral (principal); I10 Essential (primary) hypertension; F10.21 Alcohol dependence, in remission; Z87.891 Personal history of nicotine dependence
CPT/HCPCS: 73630; 80305; 81025; 99284